=== PATIENT | female | born 1955 | race Asian ===

== ENCOUNTER 2016-09-15 06:23 | Day surgery (SDC) | payer OTHER ==
[~2016-09-15] VITALS: Ht 152.4 cm; Wt 47.2 kg
[2016-09-15 06:46] VITALS: BP 131/73
[2016-09-15 09:18] VITALS: BP 104/62
== END 2016-09-15 09:40 | disposition home or self-care (01) ==
LOC: DS 06:23 → OR 07:30 → GI 07:30 → DS 09:40
PROVIDERS: Internal Medicine Gastroenterology
PROC: 0DBN8ZZ Excision of Sigmoid Colon, Via Natural or Artificial Opening Endoscopic (ICD-10-PCS; principal; 2016-09-15 07:30)
DX: Z12.11 Encounter for screening for malignant neoplasm of colon (principal); D12.5 Benign neoplasm of sigmoid colon; K64.8 Other hemorrhoids
CPT/HCPCS: 45378; J1200; J1610; J2250; J2310; J3010; J3490